=== PATIENT | female | born 1955 | race Caucasian/White ===

== ENCOUNTER 2018-06-28 09:04 | Outpatient (CLI) | payer OTHER ==
--- NOTE | 2018-06-28 12:30 | MRI ---
MRI OF RIGHT SHOUDLER PERFORMED WITHOUT CONTRAST ENHANCEMENT: HISTORY: Pain in right shoulder. FINDINGS: There is moderate arthrosis of the AC joint. There is a full-thickness supraspinatus tendon tear. The tendon is retracted by approximately 1.9 cm . AP dimension of the tear is also approximately 1.9 cm. The infraspinatus tendon is intact. There is some undersurface change of the infraspinatus which probably represents a partial undersurface te ar of the anterior fibers. Subscapularis tendon is thinned superiorly. The biceps tendon is in normal position within the bicip ital groove. There is motion artifact on this examination which makes assessment of the intraarticul ar portion of the biceps tendon very difficult. I cannot definitely see the intraarticular portion o f the biceps tendon. It could be very thin in appearance, although it may represent a tear. The lab rum is truncated in the region of the expected attachment of the biceps tendon. There are arthritic changes of the glenohumeral joint space. There is fairly minimal atrophy to the supra- and infraspinatus muscles. Inferior glenohumeral ligam ent is intact. IMPRESSION: 1. Somewhat limited examination due to the presence of motion artifact. There is a complete full-th ickness tear of the supraspinatus tendon as described above. There does appear to be an undersurface component to the tear extending into the anteriormost fibers of the infraspinatus tendon. 2. The intraarticular portion of the biceps tendon is not identified. There is a biceps tendon seen within the bicipital groove, but this could indicate a tear. The superior labrum is very truncated as expected in the attachment of the biceps tendon. POS: TPC
== END 2018-06-28 09:05 | disposition home or self-care (01) ==
LOC: SCSMRI 09:04
PROVIDERS: ATTEND Family Medicine
DX: M25.511 Pain in right shoulder (principal); M75.101 Unspecified rotator cuff tear or rupture of right shoulder, not specified as traumatic

== ENCOUNTER 2018-10-04 10:40 | Outpatient (CLI) | payer OTHER ==
--- NOTE | 2018-10-04 12:06 | CT ---
CT abdomen with IV and oral contrast HISTORY: Upper abdomen pain. COMPARISON: 12/01/2011. FINDINGS: Calcified granuloma at the left lung bases consistent with healed granulomatous disease. Ga llbladder is surgically absent with associated distention of the biliary system. No evidence of bowel obstruction. Solid organs have a normal appearance. Right renal and iliac artery stents are aga in demonstrated. Mild fusiform ectasia of the lower abdominal aorta. There are degenerative changes of lumbar spine. No enlarged lymph nodes or free fluid. Pelvis was not imaged. IMPRESSION: Chronic-type findings are stable. No abnormalities are apparent to explain upper abdomen pain.
[2018-10-04] MEDS ORDERED: ISOVUE-370 76%-LOCM 1 ML ONE (14:37)
== END 2018-10-04 10:41 | disposition home or self-care (01) ==
LOC: BICCT 10:40
PROVIDERS: ATTEND Internal Medicine Gastroenterology
DX: R10.9 Unspecified abdominal pain (principal)
CPT/HCPCS: 74160; Q9966

== ENCOUNTER → 2019-03-03 | Day surgery (SDC) | payer OTHER ==
[2019-02-28 09:53] VITALS: BMI 21.4
[~2019-03-03] MED LIST: Acetaminophen 325 MG TAB PO PRN; Fentanyl 100 MCG/2 ML VIAL IV PRN; Fentanyl 100 MCG/2 ML VIAL ONE; Glycopyrrolate 0.2 MG/ML 5 ML SYRINGE ONE; HYDROcodone/Acetaminophen 10/325 mg Tablet PO PRN; HYDROcodone/Acetaminophen 5/325 mg Tablet ONE; Lidocaine 1% PF 5 ML VIAL ONE; Lidocaine 1% w/Epinephrine 1:100K 20 ML VIAL ONE; Midazolam HCl 2 mg/2 ml Vial ONE; Ondansetron PF 4 MG/2 ML Vial IVP PRN; Ondansetron PF 4 MG/2 ML Vial ONE; PHENYLEPHRINE-NS 100 MCG/ML 10 ML SYRINGE ONE; PROPOFOL 200 MG/20 ML VIAL ONE; Promethazine HCl 25 MG/ML VIAL IM PRN; Rocuronium Bromide 10 MG/ML (10ML VIAL) ONE; Ropivacaine 0.2% 550 ML 550 ML NERVE BLCK SCH; Ropivacaine 0.2% HCl/PF (40 MG/20 ML VIAL) ONE; Ropivacaine 0.2% HCl/PF 20 ML ONE; Ropivacaine 0.5% HCl/PF (150 MG/30 ML VIAL) ONE; Zolpidem Tartrate 5 MG TAB PO PRN; ePHEDrine/0.9% NaCl/PF SYRINGE 50 mg/10 ml ONE; traMADol HCl 50 MG TAB PO PRN
[2019-03-03 07:08] LABS: #Basophils 0.1 thou/uL (0.0-0.2); #Eosinphils 0.4 thou/uL (0.0-0.7); #Lymphocytes 2.5 thou/uL (1.20-3.40); #Neutrophils 6.3 thou/uL (1.40-6.50); %Basophils 0.5 % (0.0-1.0); %Eosinophils 4.1 % (0.0-10.0); %Lymphocytes 24.3 % (21.0-51.0); %Monocytes 9.3 % (0.0-10.0); %Neutrophils 61.8 % (42.0-75.0); Hemoglobin 14.4 g/dL (12.0-16.0); Mean Corpuscular HGB CONC 33.6 g/dL (32.0-36.0); Mean Corpuscular Hemoglobin 30.9 pg (27.0-31.0); Mean Platelet Volume 7.6 fL (7.4-10.4); Platelet Count 241 thou/uL (130-400); RBC Distribution Width 12.8 % (11.5-14.5); Red Blood Cell (RBC) Count 4.65 mill/uL (4.20-5.40); White Blood Cell (WBC) Count 10.2 thou/uL (4.8-10.8)
[2019-03-03 07:12] LABS: INR-International Normal Ratio 0.9; Prothrombin Time 11.8 SEC (12.0-14.7)
[2019-03-03 07:18] LABS: Bacteria/HPF 1+ HPF (None Seen); Bilirubin Negative (Negative); Blood, Urine Negative (Negative); Clarity Clear (Clear); Glucose, Urine (Dipstick) Normal (Negative); Leukocyte Negative Leu/uL (Negative); Nitrite Negative (Negative); Protein, Urine (Dipstick) Negative (Neg-Trace); RBC/HPF 0-3 HPF (0-3); WBC/HPF 0-3 HPF (0-3)
[2019-03-03 07:20] LABS: Urine Culture Reflex No No
[2019-03-03 07:21] LABS: Anion Gap 12 mmol/L (10-20); BUN (Urea Nitrogen) 13 mg/dL (9.8-20.1); Calc. Creatinine Clearance 43 mL/min (70-130); Calcium 9.2 mg/dL (7.8-10.44); Carbon Dioxide 26 mmol/L (23-31); Chloride 104 mmol/L (98-107); Estimated GFR-MDRD 50; Glucose 78 mg/dL (80-115); Potassium 4.3 mmol/L (3.5-5.1); Sodium 138 mmol/L (136-145)
--- NOTE | 2019-03-03 13:42 | OP ---
DATE OF PROCEDURE: 03/03/2019 PREOPERATIVE DIAGNOSES: 1. Right rotator cuff tear. 2. Right biceps rupture. POSTOPERATIVE DIAGNOSES: 1. Right rotator cuff tear, full-thickness supraspinatus, leading edge infraspinatus. 2. Right biceps chronic rupture. 3. Impingement. PROCEDURE PERFORMED: 1. Right rotator cuff repair. 2. Subacromial decompression. SEASONER: None. ANESTHESIOLOGIST: Chavez. ANESTHESIA: The patient received general with interscalene block. ESTIMATED BLOOD LOSS: 30 mL. TOURNIQUET TIME: None. IMPLANTS: 5.5 Corkscrews, Arthrex x2 and a 4.75 SwiveLock x2. COMPLICATIONS: None. HISTORY OF PRESENT ILLNESS: Laura is a 64-year-old female, presents with right shoulder pain present for greater than a year. She has failed conservative measures, injured herself on the job. I discussed risks and benefits of rotator cuff over decompression to include pain, scar, bleeding, infection, damage to vital structures, decreased range of motion and strength, need for further surgeries, failure of procedure, continued pain despite surgery intervention, loss of life or limb, patient understood risks and benefits of the procedure and elected to proceed. DESCRIPTION OF PROCEDURE: Time-out was performed designating the patient's right upper extremity as the operative site based on site, consents, and marking. After time-out, posterior and anterior working portals were placed, visualized intra-articularly, saw the biceps have been chronically ruptured. There were some small degenerative changes of the humeral head, but nothing significant on the humerus. No loose bodies. No degenerative labral fraying. I saw the full-thickness rotator cuff intra-articularly and we then moved subacromially, debrided the bursa. There was a little bit hook of acromion which I knocked down from decompression to help with space as well as to decrease the sharp edge of the acromion only taking just a few millimeter with my high-speed bur. I cleaned up the bursa to expose my rotator cuff. We placed a lateral working portal and used our anterior position to continue working. We used a siomara to bur the bone down to bleeding bone for good implant of the footprint. I used my anchor, my anterior portal, placed my first ankle pass, all four suture limbs from front to back and placed a second one through the lateral hole that I had placed and placed them front to back. We then sewed posterior to anterior four horizontal mattress stitches, used one of the four limbs to go posteriorly and tied into place. I then used the longest stitch which had a slight dog-ear to pull one of the dog-ears down, patched six limbs and the anterior aspect with a four 7.5 swivel locks. We washed to ensure that I had debrided off any of the left tissue and closed with 3-0 nylon. The patient will begin elbow, wrist, and hand motion. Follow up with me in 2 weeks, which begin active range of motion in 12 weeks. Job ID: [id number]
--- NOTE | 2019-03-03 16:46 | EKG ---
Test Reason : PREOP Blood Pressure : / mmHG Vent. Rate : 075 BPM Atrial Rate : 075 BPM P-R Int : 130 ms QRS Dur : 072 ms QT Int : 428 ms P-R-T Axes : 053 025 039 degrees QTc Int : 477 ms Normal sinus rhythm ST abnormality, possible digitalis effect Abnormal ECG When compared with ECG of 22-NOV-2014 21:50, Nonspecific T wave abnormality no longer evident in Lateral leads QT has lengthened Confirmed by DR. Rod BRAVO ([id number]) on 03/03/2019 4:46:30 PM Referred By: RAPHAEL Confirmed By:DR. Rod BRAVO
== END ==
LOC: SDC 06:02
PROVIDERS: ATTEND Orthopaedic Surgery
PROC: 0RNJ4ZZ Release Right Shoulder Joint, Percutaneous Endoscopic Approach (ICD-10-PCS; principal; 2019-03-03)
PROC: 0RHJ44Z Insertion of Internal Fixation Device into Right Shoulder Joint, Percutaneous Endoscopic Approach (ICD-10-PCS; principal; 2019-03-03)
PROC: 0LQ14ZZ Repair Right Shoulder Tendon, Percutaneous Endoscopic Approach (ICD-10-PCS; principal; 2019-03-03)
DX: M75.121 Complete rotator cuff tear or rupture of right shoulder, not specified as traumatic (principal); S46.211A Strain of muscle, fascia and tendon of other parts of biceps, right arm, initial encounter; M25.811 Other specified joint disorders, right shoulder; I25.10 Atherosclerotic heart disease of native coronary artery without angina pectoris; E78.5 Hyperlipidemia, unspecified; Z79.899 Other long term (current) drug therapy; Z88.8 Allergy status to other drugs, medicaments and biological substances
CPT/HCPCS: 36415; 80048; 81001; 85025; 85610; 93005; 93010; A4306; C1713; J0690; J2001; J2250; J2405; J2704; J2795; J3010